=== PATIENT | female | born 1980 | race Asian ===

== ENCOUNTER 2022-10-29 08:56 | Emergency (ER) | payer BC ==
[~2022-10-29] VITALS: Ht 144.8 cm; Wt 62.6 kg
[2022-10-29 09:04] VITALS: BP 149/95
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
[2022-10-29] MEDS ORDERED: CYCL-711 PO (10:39)
--- NOTE | 2022-10-29 10:52 | NUR ---
Patient discharged with v/s stable. Written and verbal after care instructions given and explained. Patient alert, oriented and verbalized understanding of instructions. Ambulatory with steady gait. All questions addressed prior to discharge. ID band removed. Patient advised to follow up with PMD. Rx of FLEXERIL given. Patient educated on indication of medication including possible reaction and side effects. Opportunity to ask questions provided and answered.
== END 2022-10-29 10:52 | disposition home or self-care (01) ==
LOC: MED 08:56
DX: S16.1XXA Strain of muscle, fascia and tendon at neck level, initial encounter (principal); S39.012A Strain of muscle, fascia and tendon of lower back, initial encounter; V43.62XA Car passenger injured in collision with other type car in traffic accident, initial encounter; Y93.89 Activity, other specified; Y92.89 Other specified places as the place of occurrence of the external cause; Y99.8 Other external cause status
CPT/HCPCS: 72050; 72110; 99284